=== PATIENT | female | born 1960 | race Caucasian/White ===

== ENCOUNTER 2018-06-15 06:33 | Day surgery (SDC) | payer OTHER ==
[~2018-06-15] VITALS: Ht 167.6 cm; Wt 138.7 kg
[~2018-06-15 06:33] MED LIST: ALBU3IS INH; ALBU90OI INH; ALBU90OI6 INH; ALBUIS INH; AZIT250 PO; AZIT500 PO; Anusol-HC 2.5%30 GM PR; CHOL10002 PO; CIPDEXSU BOTHEARS; CLARITIN10 MG PO; CLIN300 PO; CODEINE-GUAIFE120 ML PO; CODGUAEL PO; CRUTCH2 USE; CYCL10 PO; Ciprodex Otic7.5 ML LEFTEAR; Coumadin7.5 MG PO; DELTASONE20 MG PO; DILT120 PO; DOCU100 PO; DULERA 200 MCG/13 GM INH; ERGO50000 PO; FLUSAL1005 IH; FLUSAL5005 INH; FLUT1DIS8 INH; FOLGARD TABLET1 EACH; HYDACE10B PO; HYDR-86 PO; LAVAP17G PO; MONT10T PO; OXYACE5T PO; OXYACE7.5T PO; PANT40 PO; PRED10 PO; PRED20 PO; Prednisone50 MG PO; TIOT18 IH; TIOT18 INH; Ultram50 MG PO; VALSARTAN-HCTZ1 EAC2 PO; Ventolin Soln3 ML INH; Ventolin5 MG/1 ML INH; WARF5 PO; WOMEN'S DAILY1 EAC1 PO
[2018-06-15] MEDS ORDERED: ALBU90OI INH (07:10)
[2018-06-15] MEDS ORDERED: BUDE6HFA INH (07:12)
[2018-06-15] MEDS ORDERED: Apple Cider Vi500 MG PO (07:12)
== END 2018-06-15 17:30 | disposition home or self-care (01) ==
LOC: ORSCSDS 06:33
PROVIDERS: Otolaryngology
PROC: 0NR607Z Replacement of Left Temporal Bone with Autologous Tissue Substitute, Open Approach (ICD-10-PCS; principal; 2018-06-15 07:30)
DX: H71.02 Cholesteatoma of attic, left ear (principal); I10 Essential (primary) hypertension; J44.9 Chronic obstructive pulmonary disease, unspecified; E66.01 Morbid (severe) obesity due to excess calories; Z68.42 Body mass index [BMI] 45.0-49.9, adult
CPT/HCPCS: 88304; J0171; J0330; J1100; J2250; J2405; J3010

== ENCOUNTER → 2018-09-07 | Outpatient (CLI) | payer OTHER ==
[~2018-09-07] MED LIST changes: +Apple Cider Vi500 MG PO; +BUDE6HFA INH
== END | disposition home or self-care (01) ==
LOC: PLD 07:38 → LAB SHORT 07:38
DX: N95.0 Postmenopausal bleeding (principal)
CPT/HCPCS: 88305

== ENCOUNTER → 2018-11-11 | Outpatient (CLI) | payer OTHER | LOC: LAB EV 14:26 → LAB SHORT 14:26 | DX: J45.909 Unspecified asthma, uncomplicated (principal) | CPT/HCPCS: 87081 ==

== ENCOUNTER 2019-06-21 06:09 | Day surgery (SDC) | payer OTHER ==
[~2019-06-21] VITALS: Ht 165.1 cm; Wt 138.4 kg
[~2019-06-21 06:09] MED LIST changes: +ALDACTONE25 MG PO; +DULO30 PO; +METO25ER PO; +WARF7.5 PO
--- NOTE | 2019-06-21 07:21 | NUR ---
06/21/19 0721 Alida Gómez IV ATTEMPT LEFT HAND THEN ANOTHER ATTEMPT IN RIGHT AC. VEIN WAS ACCESSED BOTH TIMES BUT WOULD NOT THREAD CATHETER IN COMPLETELY AND WHEN IS TRIED TO FLOAT THE CATHETER IN THE VEIN INFILTRATED
--- NOTE | 2019-06-21 08:38 | NUR ---
06/21/19 0838 Clarisa Peterson PATIENT POSITION VERIFIED BY DOCTORS IN ROOM.
--- NOTE | 2019-06-21 11:48 | NUR ---
06/21/19 1148 Pauly Villagomez PT C/O BURNING, ITCHING AND PAIN TO LEFT EYE. DR. CRAIG AND DR. GILES NOTIFIED. ERYTHROMYCIN OPTHALMIC OINTMENT ORDERED. DR. GILES REQUESTED THAT DR. BYRNE SEE THE PT PRIOR TO DISCHARGE. ERYTHROMYCIN OINTMENT APPLIED TO LEFT EYE. DR. BYRNE TO SEE PT. RECOMMENDING ERYTHROMYCIN OINTMENT WHICH SHOULD HELP OVER THE NEXT DAY. PT SENT HOME WITH ERYTHROMYCIN OINTMENT AND DR. BYNRE'S OFFICE NUMBER IN THE EVENT THAT THE IRRITATION DOES NOT GET BETTER.
== END 2019-06-21 12:29 | disposition home or self-care (01) ==
LOC: ORSCSDS 06:09
PROVIDERS: Otolaryngology
PROC: 09W Ear, Nose, Sinus, Revision (ICD-10-PCS; principal; 2019-06-21 07:30)
DX: H71.02 Cholesteatoma of attic, left ear (principal); J44.9 Chronic obstructive pulmonary disease, unspecified; J45.909 Unspecified asthma, uncomplicated; I10 Essential (primary) hypertension; I48.91 Unspecified atrial fibrillation; Z79.01 Long term (current) use of anticoagulants; Z79.899 Other long term (current) drug therapy; Z87.891 Personal history of nicotine dependence
CPT/HCPCS: J0171; J1100; J2250; J2405; J2704; J3010; J7120

== ENCOUNTER 2020-08-26 17:38 | Observation (INO) | payer OTHER ==
[~2020-08-26] VITALS: Ht 167.6 cm; Wt 139.8 kg
[~2020-08-26 17:38] MED LIST changes: -ALDACTONE25 MG PO; -BUDE6HFA INH; -DULO30 PO; -METO25ER PO
[2020-08-26 18:17] LABS: BASOPHILS PERCENT AUTO 1 % (0-2); EOSINOPHILS ABSOLUTE AUTO 1.96 K/mm3 (0.00-0.68); EOSINOPHILS PERCENT AUTO 16 % (0-6); Hematocrit 46.3 % (33.0-51.0); Hemoglobin 14.8 g/dL (11.5-16.0); IMMATURE GRAN ABSOLUTE AUTO 0.05 K/mm3 (0.00-0.10); IMMATURE GRAN PERCENT AUTO 0 % (0-1); LYMPHOCYTES ABSOLUTE AUTO 4.37 K/mm3 (0.84-5.20); LYMPHOCYTES PERCENT AUTO 35 % (21-46); MONOCYTES ABSOLUTE AUTO 0.76 K/mm3 (0.16-1.47); MONOCYTES PERCENT AUTO 6 % (4-13); Mean Corpuscular HGB 26.3 pg (26.0-34.0); Mean Corpuscular Volume 82 fL (80-100); Mean Platelet Volume 9.8 fL (9.1-12.4); NEUTROPHILS ABSOLUTE AUTO 5.44 K/mm3 (1.96-9.15); NEUTROPHILS PERCENT AUTO 43 % (41-73); Platelet Count 388 K/mm3 (150-400); RDW Coefficient Variation 14.6 % (11.7-14.2); RDW Standard Deviation 44.3 fL (35.1-46.3); Red Blood Cell Count 5.62 M/mm3 (3.80-5.20); White Blood Cell Count 12.68 K/mm3 (4.00-11.30)
[2020-08-26 18:24] LABS: Bicarbonate Venous 24.1 mmol/L (24.0-30.0); PCO2 Venous 51.7 mmHg (38-42); PO2 Venous 39.2 mmHg (38-42); pH Blood Venous 7.33 (7.34-7.37)
[2020-08-26 18:25] LABS: Base Excess Venous 1.6 mmol/L
[2020-08-26 18:50] LABS: Troponin I <0.015 ng/mL (0.000-0.040)
[2020-08-26 18:58] LABS: Alanine Aminotransfer (ALT/SGP 27 U/L (12-78); Albumin, Blood 3.6 g/dL (3.4-5.0); Albumin/Globulin Ratio 0.9 (0.8-1.8); Alk Phos 142 U/L (50-136); Anion Gap 5 mmol/L (6-16); Aspartate Aminotrans (AST/SGOT 16 U/L (12-37); Bilirubin, Total 0.4 mg/dL (0.1-1.0); Blood Urea Nitrogen 15 mg/dL (8-24); Bun/Creatinine Ratio 16.4 (12.0-20.0); CO2, Blood 26 mmol/L (21-32); Calcium, Blood 9.4 mg/dL (8.5-10.1); Chloride, Blood 107 mmol/L (98-108); Creatinine, Blood 0.92 mg/dL (0.40-1.00); Glomerular Filtration Rate >60 (60-); Glucose, Blood 117 mg/dL (70-99); Potassium, Blood 4.1 mmol/L (3.5-5.5); Sodium, Blood 138 mmol/L (136-145); Total Protein, Blood 7.6 g/dL (6.4-8.2)
[2020-08-26] MEDS ORDERED: ALBU90OI INH (21:36)
[2020-08-26] MEDS ORDERED: METO25ER PO (21:37)
[2020-08-26] MEDS ORDERED: SYMBICORT 160-4.6 GM INH (21:37)
[2020-08-26] MEDS ORDERED: DULO30 PO (21:37)
[2020-08-26] MEDS ORDERED: ALDACTONE25 MG PO (21:38)
[2020-08-26] MEDS ORDERED: OMEP20ER PO (21:38)
[2020-08-26] MEDS ORDERED: MONT10T PO (21:38)
[2020-08-26] MEDS ORDERED: XARELTO20 MG PO (21:39)
[2020-08-26] MEDS ORDERED: ROSU10TA PO (21:39)
[2020-08-26] MEDS ORDERED: TIOT18 INH (21:40)
--- NOTE | 2020-08-27 00:22 | NUR ---
PATIENT WAS ADMITTED TO FLOOR FOR COPD EXACERBATION. ARRIVED VIA GURNEY TRANSFERRED TO BED INDEPENDENTLY. AOX3, VERY TALKATIVE. LUNG SOUNDS ARE VERY TIGHT, DIMINISHED WITH SOME EXPIRTORY WHEEZES. COUGH IS NON-PRODUCTIVE. SHE GOES INTO COUGHING SPASMS AT TIMES. HAS ABDOMINAL WALL PAIN DUE TO COUGHING ALONG WITH UPPER BACK PAIN. ON RA SATS IN THE 90'S. TELE ON. DENIES ANY OTHER PROBLEMS. WILL CONTINUE TO MONITOR. CALL LIGHT IS IN REACH.
[2020-08-27 02:53] LABS: Anion Gap 9 mmol/L (6-16); Blood Urea Nitrogen 14 mg/dL (8-24); Bun/Creatinine Ratio 19.9 (12.0-20.0); CO2, Blood 23 mmol/L (21-32); Calcium, Blood 9.7 mg/dL (8.5-10.1); Chloride, Blood 107 mmol/L (98-108); Glomerular Filtration Rate >60 (60-); Glucose, Blood 162 mg/dL (70-99); Potassium, Blood 4.1 mmol/L (3.5-5.5); Sodium, Blood 139 mmol/L (136-145)
[2020-08-27 03:43] LABS: BASOPHILS ABSOLUTE AUTO 0.04 K/mm3 (0.00-0.23); BASOPHILS PERCENT AUTO 0 % (0-2); EOSINOPHILS ABSOLUTE AUTO 0.01 K/mm3 (0.00-0.68); EOSINOPHILS PERCENT AUTO 0 % (0-6); Hematocrit 43.5 % (33.0-51.0); Hemoglobin 14.3 g/dL (11.5-16.0); IMMATURE GRAN ABSOLUTE AUTO 0.16 K/mm3 (0.00-0.10); IMMATURE GRAN PERCENT AUTO 1 % (0-1); LYMPHOCYTES ABSOLUTE AUTO 0.92 K/mm3 (0.84-5.20); LYMPHOCYTES PERCENT AUTO 8 % (21-46); MONOCYTES ABSOLUTE AUTO 0.07 K/mm3 (0.16-1.47); MONOCYTES PERCENT AUTO 1 % (4-13); Mean Corpuscular HGB 26.4 pg (26.0-34.0); Mean Corpuscular HGB Conc 32.9 g/dL (31.5-36.5); Mean Corpuscular Volume 80 fL (80-100); NEUTROPHILS ABSOLUTE AUTO 10.69 K/mm3 (1.96-9.15); NEUTROPHILS PERCENT AUTO 90 % (41-73); Platelet Count 370 K/mm3 (150-400); RDW Coefficient Variation 14.6 % (11.7-14.2); RDW Standard Deviation 42.5 fL (35.1-46.3); Red Blood Cell Count 5.41 M/mm3 (3.80-5.20); White Blood Cell Count 11.89 K/mm3 (4.00-11.30)
--- NOTE | 2020-08-27 04:59 | NUR ---
SHIFT SUMMARY: ADMIT TONIGHT AROUND 2300 FOR COPD EXACERBATION. AOX4, INDEPENDENT IN THE ROOM. HAS HAD INCREASED IN SOB OVER THE LAST MONTH, FAILED HOME ANTIBOTICS AND STERIOD USE. LUNG SOUNDS EXPIRTORY WHEEZES, TIGHT, DIMINISHED BUT GOOD AIR EXCHANGE AND PURFUSION EVIDENCE BY SATS >95%. SOB WITH TALKING AT TIMES, BUT DOES GET VERY DYSPENIC WITH EXERTION. COUGH IS PRODUCTIVE WITH BROWN SPUTUM. BREATHING TX Q4 HRS, VBG CO2 51.7 ON ADMIT. HYPERTENSIVE IN THE 160'S. PAIN IN UPPER BACK AND UPPER ABDOMIN FROM HACKING SPASMATIC COUGH. AFEBRILE, ON RA. GAVE COUGH SUPPRESANT X1. PLAN: RT TREATMENT OF NEBULIZER AND INHALERS, POSSIBLE STERIODS. CALL LIGHT IS IN REACH.
--- NOTE | 2020-08-27 17:08 | NUR ---
PT IS A/OX3, PLEASANT AND COOPERATIVE, THE PT IS UP WITH MINIMAL ASSIST TO THE BATHROOM, THE PT DENIES ANY PAIN AT THIS TIME, THE PT IS SOB WITH ANY ACTIVITY, TODAY THE PATIENT WAS OUT WALKING IN THE [place] WITH THE RESPIRATORY THERAPIST FOR A HOME O2 EVAL, THE PT MAINTAINED HER O2 SAT'S, HOWVER, BECAME VERY WHEEZY, PURPLE IN COLOR, AND TACHYCARDIAC HR IN THE HIGH 120'S, DR. PENNINGTON WAS CALLED AND THE PTS DC WAS HELD UNTIL POSSIBLY TOMMOROW, THE PT BP WAS ELEVATED AND RESP WERE IN THE 30'S, ATIVAN 1 MG WAS GIVEN AND THE PT WAS ABLE TO CALM, THE PT WAS GIVEN ROBITUSSIN FOR HARSH COUGH, COUGH HAS IMPROVED, CALL LIGHT IN REACH WILL CONTINUE TO MONITOR AND ASSESS FOR CHANGES
[2020-08-27] MEDS ORDERED: ACET325 PO (17:50)
[2020-08-27] MEDS ORDERED: AZIT250 PO (17:51)
[2020-08-27] MEDS ORDERED: BISA10S PR (17:52)
[2020-08-27] MEDS ORDERED: Q-Tussin100 MG/5 M PO (17:56)
[2020-08-27] MEDS ORDERED: Flonase 0.05% N16 GM (17:57)
[2020-08-27] MEDS ORDERED: IPRAT-ALBUT 0.5-3 ML INH (17:59)
[2020-08-27] MEDS ORDERED: PRED20 PO (18:00)
[2020-08-27] MEDS ORDERED: VISBIOME 112.51 EACH PO (18:00)
[2020-08-27] MEDS ORDERED: LORA10ER PO (18:02)
[2020-08-27 19:27] LABS: Adenovirus Not Detected (NOT DETECT)
[2020-08-27 19:28] LABS: Bordetella pertussis Not Detected (NOT DETECT); Chlamydophila pneumoniae Not Detected (NOT DETECT); Coronavirus 229E Not Detected (NOT DETECT); Coronavirus HKU1 Not Detected (NOT DETECT); Coronavirus NL63 Detected (NOT DETECT); Coronavirus OC43 Not Detected (NOT DETECT); Human Metapneumovirus Not Detected (NOT DETECT); Human Rhinovirus/Enterovirus Not Detected (NOT DETECT); Influenza A/2009-H1 Not Detected (NOT DETECT); Influenza A/H1 Not Detected (NOT DETECT); Influenza A/H3 Not Detected (NOT DETECT); Influenza B Not Detected (NOT DETECT); Mycoplasma pneumoniae Not Detected (NOT DETECT); Parainfluenza Virus 1 Not Detected (NOT DETECT); Parainfluenza Virus 2 Not Detected (NOT DETECT); Parainfluenza Virus 3 Not Detected (NOT DETECT); Parainfluenza Virus 4 Not Detected (NOT DETECT); Respiratory Syncytial Virus Not Detected (NOT DETECT); SARS-Cov-2 (COVID-19), BioFire Not Detected (NOT DETECT)
--- NOTE | 2020-08-27 20:40 | NUR ---
ASSUMPTION OF CARE. AOX3, INDEPENDENT. BREATHING HAS IMPROVED, SHE IS NOT TACHYPNEA ALL THE TIME. LUNG SOUNDS ARE EXPIRTORY WHEEZES, ALREADY HAD A BREATHING TREATMENT FROM RT AND INHALERS. STILL GETS VERY WINDED WITH EXERTION. DISCUSSED BREATHING EXERCISES TO HELP IMPROVE MOBILITY. DENIES ANY OTHER ISSUSES. NIGHT MEDS ADMINISTERED. CURRENTLY READING HER TABLET. CALL LIGHT IS IN REACH.
[2020-08-28 05:06] LABS: BASOPHILS ABSOLUTE AUTO 0.03 K/mm3 (0.00-0.23); BASOPHILS PERCENT AUTO 0 % (0-2); EOSINOPHILS PERCENT AUTO 0 % (0-6); Hematocrit 41.5 % (33.0-51.0); Hemoglobin 13.5 g/dL (11.5-16.0); IMMATURE GRAN ABSOLUTE AUTO 0.26 K/mm3 (0.00-0.10); IMMATURE GRAN PERCENT AUTO 1 % (0-1); LYMPHOCYTES ABSOLUTE AUTO 1.42 K/mm3 (0.84-5.20); LYMPHOCYTES PERCENT AUTO 6 % (21-46); MONOCYTES ABSOLUTE AUTO 0.58 K/mm3 (0.16-1.47); MONOCYTES PERCENT AUTO 3 % (4-13); Mean Corpuscular HGB 26.1 pg (26.0-34.0); Mean Corpuscular HGB Conc 32.5 g/dL (31.5-36.5); Mean Corpuscular Volume 80 fL (80-100); Mean Platelet Volume 9.8 fL (9.1-12.4); NEUTROPHILS ABSOLUTE AUTO 21.08 K/mm3 (1.96-9.15); NEUTROPHILS PERCENT AUTO 90 % (41-73); Platelet Count 346 K/mm3 (150-400); RDW Coefficient Variation 14.8 % (11.7-14.2); RDW Standard Deviation 43.1 fL (35.1-46.3); Red Blood Cell Count 5.17 M/mm3 (3.80-5.20); White Blood Cell Count 23.37 K/mm3 (4.00-11.30)
[2020-08-28 05:20] LABS: Anion Gap 6 mmol/L (6-16); Blood Urea Nitrogen 19 mg/dL (8-24); Bun/Creatinine Ratio 21.6 (12.0-20.0); CO2, Blood 24 mmol/L (21-32); Calcium, Blood 9.4 mg/dL (8.5-10.1); Chloride, Blood 109 mmol/L (98-108); Creatinine, Blood 0.88 mg/dL (0.40-1.00); Glomerular Filtration Rate >60 (60-); Glucose, Blood 143 mg/dL (70-99); Magnesium, Blood 2.4 mg/dL (1.6-2.4); Potassium, Blood 4.5 mmol/L (3.5-5.5); Sodium, Blood 139 mmol/L (136-145)
--- NOTE | 2020-08-28 06:21 | NUR ---
SHIFT SUMMARY: AOX3, INDEPENDENT. RESPIRTORY STATUS HAS IMPROVED. SHE HAD BETTER AIR MOVEMENT IN THE LUNGS BUT STILL VERY SOB WITH EXERTION. LS EXPIRTORY WHEEZES. BREATHING TX Q4, SOLUMEDROL Q6 60MG. COUGH HAS IMPROVED NOT SO MUCH HACKING. WBC INCREASED TODAY TO 23.37. BP HAS BEEN AVERAGING IN THE 160'S. HR PER TELE AVERAGE I THE 70'S. NO EDEMA. HOPES TO GO HOME TODAY. CALL LIGHT IS IN REACH.
--- NOTE | 2020-08-28 07:36 | NUR ---
ASSUMED CARE OF PT- BEDSIDE REPORT COMPLETED WITH NIGHT RN GENE. PT ALERT ORIENTED AND INDEPENDENT IN THE ROOM. HERE FOR A COPD EXACERBATION. PT VERY TALKATIVE DESPITE A HACKING COUGH AND SOB RESULTING FROM IT. PER REPORT PT HAD A HOME O2 EVAL YESTERDAY, PLAN FOR DISCHARGE TODAY. ALSO PER REPORT PT IS RECIEVEING Q6 HOUR IV SOLUMEDROL, WBC COUNT ELEVATED ON MORNING LABS MAY BE RELATED TO STEROIDS. WILL SPEAK TO DR ON MORNING ROUNDS. PT IN BED CALL LIGHT IN REACH, NO S&S OF DISTRESS, HACKING COUGH NOTED. RT IN THE ROOM AT THE TIME OF REPORT.
--- NOTE | 2020-08-28 10:00 | NUR ---
SPOKE TO DR PENNINGTON ABOUT THE PT DOSE OF SOLUMEDROL HE IS AWARE. PT TO GO HOME ON PO PREDNISONE STARTING TOMORROW. PT SEEMS TO HAVE SOME ACTIVITY INTOLLERANCE AND HAS CONVEYED TO STAFF SHE DOES NOT FEEL READY TO GO HOME JUST YET. DR PONCE. [facility] ORDERED TO CONFIRM PT MEDICAL STABILITY, ALL OTHER FINDINGS ARE WNL. ELEVATED WBC COUNT, DR PONCE (LIKELY RELATED TO IV STEROID USE). IF [facility]G HAS NO CRITICAL VALUES THE PT WILL BE DISCHARGING HOME. SPOKE TO PHYSICAL THERAPY, PER PHYSICAL THERAPIST PT IS AT HER BASELINE FOR HER ACTIVITY AND DOSE NOT QUALIFY FOR SNF. PT ALERT AND ORIENTED 1P ASSIST IN THE ROOM FOR SAFETY.
--- NOTE | 2020-08-28 13:30 | NUR ---
CALLED DR PENNINGTON- NO CRITICAL VALUES ON ABG RESULTS. PT OK TO DISCHARGE HOME. OK TO GIVE 1200 DOSE OF SOLUMEDROL IV PRIOR TO DISCHARGE.
[2020-08-28 13:34] LABS: PCO2 Arterial 34.7 mmHg (35-45); PO2 Arterial 72.9 mmHg (80-100); pH Blood Arterial 7.46 (7.35-7.45)
--- NOTE | 2020-08-28 15:30 | NUR ---
SPOKE TO EVAPORATIVE COOLER INSTALLER PT NEEDS A FWW AT HOME AND DISCHARGE IS EMINENT. [facility] TO DELIVER PRIOR TO PT DISCHARGE.
--- NOTE | 2020-08-28 16:03 | NUR ---
DISCHARGE NOTE- PT WALKER HAS BEEN DELIVERED. PT WAS GIVEN VERBAL AND WRITTEN DISCHRGE INSTRUCTIONS AND ACKNOWLEDGED UNDERSTANDING OF THEM. MEDS FAXED TO PT PHARMACY, FOLLOW UP APPOINTMENTS SCHEDULED, PT AWARE. ORTHODONTIST VICE PRESIDENT COMPLETED DISCHARGE. PT IV AND TELE DC'D PRIOR TO DISCHARGE, PT TO BE ESCORTED OUT VIA WC BY STAFF, FAMILY JUST ARRIVED TO PICK HER UP. PT VERY CONVERSATIONAL, LONG SCENTENCES AND STORIES FREQUENTLY.
== END 2020-08-28 16:15 | disposition home health service (06) ==
LOC: ER 17:38 → MEDS 17:39 → ENPENDDIS 08-27 14:25 → MEDS 08-28 16:15
PROVIDERS: Family Medicine; Nurse Practitioner Acute Care; Physician Assistant; ADMIT Internal Medicine
DX: J44.9 Chronic obstructive pulmonary disease, unspecified (principal); J45.901 Unspecified asthma with (acute) exacerbation; J96.20 Acute and chronic respiratory failure, unspecified whether with hypoxia or hypercapnia; I48.20 Chronic atrial fibrillation, unspecified; R07.89 Other chest pain; I10 Essential (primary) hypertension; E66.01 Morbid (severe) obesity due to excess calories; Z20.822 Contact with and (suspected) exposure to COVID-19; Z29.9 Encounter for prophylactic measures, unspecified; Z87.891 Personal history of nicotine dependence; Z88.0 Allergy status to penicillin; Z88.1 Allergy status to other antibiotic agents; Z88.2 Allergy status to sulfonamides
CPT/HCPCS: 0202U; 36415; 36600; 71045; 80048; 80053; 82803; 83735; 83880; 84145; 84484; 85025; 85379; 93005; 93010; 94640; 94644; 94645; 94660; 94664; 94667; 94668; 94760; 94762; 96365; 96366; 96375; 96376; 97116; 97162; 97530; 98960; 99285-25; A9270; G0378; J2060; J2930; J3475

== ENCOUNTER 2020-09-11 17:15 | Inpatient (IN) | payer OTHER ==
[~2020-09-11] VITALS: Ht 157.5 cm; Wt 143.7 kg
[~2020-09-11 17:15] MED LIST changes: +ACET325 PO; +ALDACTONE25 MG PO; +BISA10S PR; +DULO30 PO; +Flonase 0.05% N16 GM; +IPRAT-ALBUT 0.5-3 ML INH; +LORA10ER PO; +METO25ER PO; +OMEP20ER PO; +Q-Tussin100 MG/5 M PO; +ROSU10TA PO; +SYMBICORT 160-4.6 GM INH; +VISBIOME 112.51 EACH PO; +XARELTO20 MG PO
[2020-09-11] MEDS ORDERED: TIOT18 (17:51)
[2020-09-11] MEDS ORDERED: XARELTO20 MG PO (17:51)
[2020-09-11 17:53] LABS: BASOPHILS ABSOLUTE AUTO 0.07 K/mm3 (0.00-0.23); BASOPHILS PERCENT AUTO 1 % (0-2); EOSINOPHILS ABSOLUTE AUTO 0.56 K/mm3 (0.00-0.68); EOSINOPHILS PERCENT AUTO 5 % (0-6); Hematocrit 44.4 % (33.0-51.0); IMMATURE GRAN ABSOLUTE AUTO 0.07 K/mm3 (0.00-0.10); IMMATURE GRAN PERCENT AUTO 1 % (0-1); LYMPHOCYTES ABSOLUTE AUTO 2.18 K/mm3 (0.84-5.20); LYMPHOCYTES PERCENT AUTO 18 % (21-46); MONOCYTES ABSOLUTE AUTO 0.79 K/mm3 (0.16-1.47); MONOCYTES PERCENT AUTO 6 % (4-13); Mean Corpuscular HGB 26.1 pg (26.0-34.0); Mean Corpuscular HGB Conc 31.5 g/dL (31.5-36.5); Mean Corpuscular Volume 83 fL (80-100); Mean Platelet Volume 9.7 fL (9.1-12.4); NEUTROPHILS ABSOLUTE AUTO 8.75 K/mm3 (1.96-9.15); NEUTROPHILS PERCENT AUTO 70 % (41-73); Platelet Count 334 K/mm3 (150-400); RDW Coefficient Variation 15.8 % (11.7-14.2); RDW Standard Deviation 46.9 fL (35.1-46.3); Red Blood Cell Count 5.36 M/mm3 (3.80-5.20); White Blood Cell Count 12.42 K/mm3 (4.00-11.30)
[2020-09-11 18:05] LABS: Alanine Aminotransfer (ALT/SGP 82 U/L (12-78); Albumin, Blood 3.7 g/dL (3.4-5.0); Albumin/Globulin Ratio 0.9 (0.8-1.8); Alk Phos 142 U/L (50-136); Anion Gap 5 mmol/L (6-16); Aspartate Aminotrans (AST/SGOT 48 U/L (12-37); Bilirubin, Total 0.6 mg/dL (0.1-1.0); Blood Urea Nitrogen 7 mg/dL (8-24); CO2, Blood 24 mmol/L (21-32); Calcium, Blood 9.5 mg/dL (8.5-10.1); Chloride, Blood 110 mmol/L (98-108); Creatinine, Blood 0.78 mg/dL (0.40-1.00); Globulin, Blood 4.1 g/dL (2.2-4.0); Glomerular Filtration Rate >60 (60-); Glucose, Blood 117 mg/dL (70-99); Potassium, Blood 4.2 mmol/L (3.5-5.5); Sodium, Blood 139 mmol/L (136-145); Total Protein, Blood 7.8 g/dL (6.4-8.2); Troponin I <0.015 ng/mL (0.000-0.040)
[2020-09-11 18:51] LABS: PCO2 Arterial 38.9 mmHg (35-45); PO2 Arterial 120 mmHg (80-100); pH Blood Arterial 7.38 (7.35-7.45)
[2020-09-11] MEDS ORDERED: DAILY-VITE1 EAC1 PO (19:41)
[2020-09-12 04:35] LABS: BASOPHILS ABSOLUTE AUTO 0.01 K/mm3 (0.00-0.23); BASOPHILS PERCENT AUTO 0 % (0-2); EOSINOPHILS PERCENT AUTO 0 % (0-6); Hematocrit 38.6 % (33.0-51.0); Hemoglobin 12.4 g/dL (11.5-16.0); IMMATURE GRAN ABSOLUTE AUTO 0.07 K/mm3 (0.00-0.10); IMMATURE GRAN PERCENT AUTO 1 % (0-1); LYMPHOCYTES ABSOLUTE AUTO 0.76 K/mm3 (0.84-5.20); LYMPHOCYTES PERCENT AUTO 8 % (21-46); MONOCYTES ABSOLUTE AUTO 0.08 K/mm3 (0.16-1.47); MONOCYTES PERCENT AUTO 1 % (4-13); Mean Corpuscular HGB 26.3 pg (26.0-34.0); Mean Corpuscular HGB Conc 32.1 g/dL (31.5-36.5); Mean Corpuscular Volume 82 fL (80-100); Mean Platelet Volume 9.8 fL (9.1-12.4); NEUTROPHILS ABSOLUTE AUTO 8.08 K/mm3 (1.96-9.15); NEUTROPHILS PERCENT AUTO 90 % (41-73); Platelet Count 311 K/mm3 (150-400); RDW Coefficient Variation 15.7 % (11.7-14.2); RDW Standard Deviation 46.5 fL (35.1-46.3); Red Blood Cell Count 4.71 M/mm3 (3.80-5.20)
[2020-09-12 04:56] LABS: Alanine Aminotransfer (ALT/SGP 68 U/L (12-78); Albumin, Blood 3.1 g/dL (3.4-5.0); Albumin/Globulin Ratio 0.8 (0.8-1.8); Alk Phos 126 U/L (50-136); Anion Gap 7 mmol/L (6-16); Aspartate Aminotrans (AST/SGOT 29 U/L (12-37); Bilirubin, Total 0.5 mg/dL (0.1-1.0); Blood Urea Nitrogen 8 mg/dL (8-24); Bun/Creatinine Ratio 11.9 (12.0-20.0); CO2, Blood 23 mmol/L (21-32); Calcium, Blood 9.4 mg/dL (8.5-10.1); Chloride, Blood 110 mmol/L (98-108); Creatinine, Blood 0.67 mg/dL (0.40-1.00); Globulin, Blood 3.7 g/dL (2.2-4.0); Glomerular Filtration Rate >60 (60-); Glucose, Blood 169 mg/dL (70-99); Potassium, Blood 4.3 mmol/L (3.5-5.5); Sodium, Blood 140 mmol/L (136-145); Total Protein, Blood 6.8 g/dL (6.4-8.2)
--- NOTE | 2020-09-12 12:10 | NUR ---
PHYSICIAN UPDATED PHYSICIAN UPDATED OF PT'S CURRENT HYPERTENSIVE STATE. PHYSICIAN TO PUT IN ORDERS.
--- NOTE | 2020-09-12 18:37 | NUR ---
SHIFT SUMMARY PT ALERT AND ORIENTED X 4. HR STABLE. BP HYPERTENSIVE AT TIMES. PHYSICIAN NOTIFIED. MEDICATION PROVIDED PER EMAR AND PHYSICIAN ORDERS. NO CP OR PRESSURE REPORTED. OXYGEN SATURATION MAINTAINED ABOVE 92% ON RA. PT SBA TO COMMODE NEEDED. WILL CONTINUE TO MONITOR UNTIL REPORT GIVEN TO NIGHTSHIFT RN.
--- NOTE | 2020-09-13 05:56 | NUR ---
SHIFT SUMMARY PT IS ALERT AND ORIENTED. PT HAS BEEN HYPERTENSIVE, SATS HAVE BEEN >92% ON ROOM AIR. USES CPAP DURING SLEEP. THERE HAVE BEEN NO ACUTE CHANGES. PT IS SBA TO THE BATHROOM WITH FWW AND TOLERATES WELL. BRUSING PRESENT IN RIGHT LEG DUE TO FALL. THERE IS BRUSING FROM PREVIOUS IV IN LEFT AC. WHEN ASSESSING PT STATED THAT HER CALF WAS VERY TENDER AT TOUCH WITH SOME WARMTH AND REDNESS.
--- NOTE | 2020-09-13 10:00 | NUR ---
pt laying in bed awake and eating breakfast, a/ox3, pleasant and cooperative with care, follows commands well, denies pain at this time, states she is feeling better, lungs are dim with occ wheeze in bases, resp even and unlabored, no cough noted, but she reports an occ prd cough, is on r/a at this time, hrr, 2+ edema noted to b/l le, ppp+1, cap refill <3sec, vs stable, afebrile, iv sites are clear and patent, btx4, abd flat soft nontender, voids without diff, skin has a large bruise to right knee, no open areas, maew, using a walker to ambulate to the bathroom, call light in reach. is medical status.
--- NOTE | 2020-09-13 10:04 | NUR ---
pt has a room on medical, will transfer her to medical via wheelchair, report given to Wilfrido SEGURA. pt left via wheelchair with engraver tire mold in attendence with all her belongings.
--- NOTE | 2020-09-14 05:27 | NUR ---
PT IS A/O, PLEASANT, WAS ANXIOUS AT BEGINING OF SHIFT, ATIVAN GIVEN FOR ANXIETY PER EMAR. PT HAS AUDIBLE WHEEZING AT ASSESSMENT, USES CPAP AT HS WHILE SLEEPING, CONTINUOUS BIOX ON.
[2020-09-14 05:33] LABS: BASOPHILS ABSOLUTE AUTO 0.02 K/mm3 (0.00-0.23); BASOPHILS PERCENT AUTO 0 % (0-2); EOSINOPHILS PERCENT AUTO 0 % (0-6); Hematocrit 39.7 % (33.0-51.0); Hemoglobin 12.7 g/dL (11.5-16.0); IMMATURE GRAN ABSOLUTE AUTO 0.14 K/mm3 (0.00-0.10); IMMATURE GRAN PERCENT AUTO 1 % (0-1); LYMPHOCYTES ABSOLUTE AUTO 0.87 K/mm3 (0.84-5.20); LYMPHOCYTES PERCENT AUTO 6 % (21-46); MONOCYTES PERCENT AUTO 3 % (4-13); Mean Corpuscular HGB 26.2 pg (26.0-34.0); Mean Corpuscular Volume 82 fL (80-100); NEUTROPHILS ABSOLUTE AUTO 13.54 K/mm3 (1.96-9.15); NEUTROPHILS PERCENT AUTO 91 % (41-73); Platelet Count 322 K/mm3 (150-400); RDW Coefficient Variation 15.9 % (11.7-14.2); RDW Standard Deviation 46.8 fL (35.1-46.3); Red Blood Cell Count 4.85 M/mm3 (3.80-5.20); White Blood Cell Count 14.97 K/mm3 (4.00-11.30)
[2020-09-14 05:59] LABS: Anion Gap 5 mmol/L (6-16); Blood Urea Nitrogen 24 mg/dL (8-24); Bun/Creatinine Ratio 28.1 (12.0-20.0); CO2, Blood 24 mmol/L (21-32); Calcium, Blood 8.8 mg/dL (8.5-10.1); Chloride, Blood 110 mmol/L (98-108); Creatinine, Blood 0.85 mg/dL (0.40-1.00); Glomerular Filtration Rate >60 (60-); Glucose, Blood 153 mg/dL (70-99); Phosphorus, Blood 3.5 mg/dL (2.5-4.9); Potassium, Blood 4.2 mmol/L (3.5-5.5); Sodium, Blood 139 mmol/L (136-145)
--- NOTE | 2020-09-14 16:33 | NUR ---
Shift Summary AOx4, pleasant/cooperative with care. Denies pain, nausea, vomiting, diarrhea. Up to shower with minimal assistance. Dyspnea with exertion, but patient reports doing better than previously. Continuous biox on, sats > 90%. Resting in bed comfortably, denies shortness of breath at rest. Occassional dry cough, on RA, wheezes to middle and lower lobes. No acute changes, WCTM.
--- NOTE | 2020-09-15 05:49 | NUR ---
PT IS A/O, PLEASANT, O2 SATS ARE IN UPPER 90'S BUT PT IS SOB WHEN AMBULATING TO RESTROOM WITH FWW. MEDICATED THIS SHIFT FOR ANXIETY, PT IS RECIEVING STEROIDS AND BREATHING TX'S. CPAP AT HS.
--- NOTE | 2020-09-15 12:45 | NUR ---
FLUTTER VALVE FLUTTER VALVE BROUGHT INTO ROOM. PATIENT VERBALIZES AND DEMONSTRATED UNDERSTANDING OF PURPOSE AND USE.
--- NOTE | 2020-09-15 16:38 | NUR ---
Shift Summary A/Ox4, up in room to bathroom independently with FWW. Calls for needs appropriately. Denies pain. Remains dysnpneic with exertion. Oximetry on. No acute changes, WCTM.
--- NOTE | 2020-09-16 05:10 | NUR ---
SUMMARY: PT A/OX4, INDEPENDENT, PLEASANT AND COOPERATIVE W/CARE AND CALLS APPROPRIATELY TO SPECIFY NEEDS. SHE ADMITS THAT BREATHING IS MUCH BETTER. SCHEDULED IV SOLUMEDROL AND BX TX'S BEING RECIEVED PER RT. PT TOLERATED CPAP AT HS W/CONT.BIOX. INTACT. SPO2 WNL AND RESPS E/U T/O NOCTE. MILD SOB OBSERVED W/EXERTION TO BATHROOM BUT PT RECOVERS QUICKLY. TESEKTAON ESTELLES RECIEVED FOR DRY COUGH AND ATIVAN IV PRN PROVIDED PER PT REQUEST FOR SLEEP. NO ACUTE CHANGES. SHE CONT'S INTERMITTENTLY HYPERTENSIVE W/SBP 170'S AT START OF SHIFT BUT IMPROVED TO 160'S AFTER SCHEDULED COZAAR WAS RECIEVED. VSS/AFEBRILE. WCTM AND REPORT TO DAY RN.
--- NOTE | 2020-09-16 18:44 | NUR ---
Shift Summary A/Ox4. Still short of breath with exertion. Independent to the bathroom w/FWW. Wheezing lung sounds throughout. Blood pressure has been elevated. PRN meds given. Otherwise, no acute changes.
--- NOTE | 2020-09-17 04:27 | NUR ---
SHIFT SUMMARY A/O, ABLE TO MAKE NEEDS KNOWN. COOPERATIVE WITH CARE. CALLS AND ANSWERS QUESTIONS APPROPRIATELY. NO C/O PAIN/DISCOMFORT. INDEPENDENT IN ROOM /c FWW; STATES WILL CALL IF FEELS DIZZY. STATES CAN FEEL BREATHING IS GETTING BETTER; ABLE TO YAWN. "I HAVENT BEEN ABLE TO YAWN IN SUCH A LONG TIME". REMAINS HYPERTENSIVE; HOWEVER APPEARS ON TREND WITH PREVIOUS PRESSURES. ALL OTHER VS WNL. CPAP @ HS WITH CONT. BIOX. IN PLACE. APPEARED TO REST OVERNIGHT. NO ACUTE CHANGES NOTED. BED REMAINS IN LOWEST POSITION. CALL LIGHT AND BELONGINGS WITHIN REACH. CONTINUE WITH CURRENT PLAN OF CARE. REPORT TO ONCOMING RN.
--- NOTE | 2020-09-17 16:04 | NUR ---
Requested by RN to meet pt today, to discuss anxiety. Pt appears anxious, and her face shakes when she breaths. attempts to tripod when she sits upright. Bilateral shoulders are extremly tight, likely related to struggle to breath. Pt reports she was asthmatic as a young child, and has lived with it all her life. She states she was them diagnosed with COPD some years ago, and has had exacerbations intermittently. She is currently diagnosed with pneumonia, and being treated with antibotx Requested Dr. Farooq order pulmonology consult, which she have on an outpatient basis. Plan to return to pt room today, offer teaching of breathing relaxation.
--- NOTE | 2020-09-17 17:48 | NUR ---
Met with pt again today, this time to practice breathing techniques such as diaphragmatic breathing and review pursed lip breathing, and pt reports she hasn't tried the diaphramatic breathing before, and find it does help to calm her. Pt likely d/c from hosptial tomorrow. Current code status is FULL and pt wishes to remain this way.
--- NOTE | 2020-09-18 06:00 | NUR ---
SHIFT SUMMARY: PATIENT IS A&OX4, LUNGS HAVE EXPIRATORY WHEEZES BILAT IN UPPER BASES. MAINTAINS SATS AT 96% ON RA. COMPLIANT WITH CPAP FOR SLEEP, VSS. INDEPENDANT TO THE BATHROOM. PATIENT REQUESTED ATIVAN FOR ANXIETY AND INSOMNIA, MED WAS GIVEN WITH GOOD EFFECT.
--- NOTE | 2020-09-18 09:00 | NUR ---
PT PLEASANT COOP A/O X3. TALKATIVE. DENIES PAIN. H/R REG, NO MURMER NOTED. NO TELE. LUNGS HAVE LIGHT EXP WHEEZES, LIGHTLY COARSE IN BASES. ON R/A. RESP EASY, UNLABORED. BT 4 LAST BM YEST. VOIDS INDEPENDANT TO BATHROOM. STATES SOME SOB WITH AMBULATION. BED IN LOW POSITION, CALL LITE IN REACH, CALLS APPROP
--- NOTE | 2020-09-18 11:06 | NUR ---
BP UP SOME THIS AM :154/98 P 61. RECHECK AFTER AM MEDS : 131/69 P 61
[2020-09-18] MEDS ORDERED: ACET325 PO (12:08)
[2020-09-18] MEDS ORDERED: Amlodipine Besyl5 MG PO (12:08)
[2020-09-18] MEDS ORDERED: BENZ100A PO (12:09)
[2020-09-18] MEDS ORDERED: FURO20 PO (12:10)
[2020-09-18] MEDS ORDERED: DOCU100 PO (12:10)
[2020-09-18] MEDS ORDERED: ROBITUSSIN PO (12:10)
[2020-09-18] MEDS ORDERED: LOSA50 PO (12:12)
[2020-09-18] MEDS ORDERED: IPRAT-ALBUT 0.5-3 ML INH (12:12)
[2020-09-18] MEDS ORDERED: ONDA4ODT PO (12:13)
[2020-09-18] MEDS ORDERED: PRED20 PO (12:15)
--- NOTE | 2020-09-18 15:14 | NUR ---
DISCHARGE. REVIEWED WITH PT AND GRANDSON. PT VERBALIZED UNDERSTANDING MEDS AND APPTS. IV PULLED INTACT. NO TELE. PT WHEELED TO DOOR BY AIDE AT 1514
== END 2020-09-18 15:10 | disposition home or self-care (01) | DRG 189 ==
LOC: ER 17:15 → PCU 21:11 → MEDS 21:11 → PCU 09-12 12:00 → MEDS 09-13 10:10
PROVIDERS: Emergency Medicine; Internal Medicine; ADMIT Internal Medicine
PROC: 5A09457 Assistance with Respiratory Ventilation, 24-96 Consecutive Hours, Continuous Positive Airway Pressure (ICD-10-PCS; principal; 2020-09-11)
DX: J96.01 Acute respiratory failure with hypoxia (principal); J45.901 Unspecified asthma with (acute) exacerbation; J44.1 Chronic obstructive pulmonary disease with (acute) exacerbation; Z68.45 Body mass index [BMI] 70 or greater, adult; I10 Essential (primary) hypertension; M79.7 Fibromyalgia; I48.0 Paroxysmal atrial fibrillation; E66.01 Morbid (severe) obesity due to excess calories; F40.240 Claustrophobia; F41.9 Anxiety disorder, unspecified; I25.10 Atherosclerotic heart disease of native coronary artery without angina pectoris; J40 Bronchitis, not specified as acute or chronic; G47.33 Obstructive sleep apnea (adult) (pediatric); M06.9 Rheumatoid arthritis, unspecified; Z88.1 Allergy status to other antibiotic agents; Z88.0 Allergy status to penicillin; Z88.2 Allergy status to sulfonamides; I25.2 Old myocardial infarction; Z79.01 Long term (current) use of anticoagulants; Z98.51 Tubal ligation status; Z98.890 Other specified postprocedural states; Z87.891 Personal history of nicotine dependence; Z79.899 Other long term (current) drug therapy; Z79.51 Long term (current) use of inhaled steroids
CPT/HCPCS: 36415; 36600; 71045; 80053; 80069; 82803; 84484; 85025; 93005; 93010; 94640; 94644; 94645; 94660; 94667; 94762; 99285-25; A9270; A9270-GY; J0360; J2060; J2930; J3475; J7512

== ENCOUNTER 2022-04-24 14:35 | Emergency (ER) | payer OTHER ==
[~2022-04-24] VITALS: Ht 167.6 cm; Wt 149.7 kg
[~2022-04-24 14:35] MED LIST changes: +Amlodipine Besyl5 MG PO; +BENZ100A PO; +DAILY-VITE1 EAC1 PO; +FURO20 PO; +LOSA50 PO; +ONDA4ODT PO; +ROBITUSSIN PO; +TIOT18
[2022-04-24 15:23] LABS: BASOPHILS ABSOLUTE AUTO 0.07 K/mm3 (0.00-0.23); BASOPHILS PERCENT AUTO 1 % (0-2); EOSINOPHILS ABSOLUTE AUTO 1.12 K/mm3 (0.00-0.68); EOSINOPHILS PERCENT AUTO 9 % (0-6); Hematocrit 40.2 % (33.0-51.0); IMMATURE GRAN ABSOLUTE AUTO 0.06 K/mm3 (0.00-0.10); IMMATURE GRAN PERCENT AUTO 1 % (0-1); LYMPHOCYTES ABSOLUTE AUTO 3.37 K/mm3 (0.84-5.20); LYMPHOCYTES PERCENT AUTO 27 % (21-46); MONOCYTES PERCENT AUTO 5 % (4-13); Mean Corpuscular HGB 25.9 pg (26.0-34.0); Mean Corpuscular HGB Conc 32.3 g/dL (31.5-36.5); Mean Corpuscular Volume 80 fL (80-100); NEUTROPHILS ABSOLUTE AUTO 7.47 K/mm3 (1.96-9.15); NEUTROPHILS PERCENT AUTO 59 % (41-73); Platelet Count 402 K/mm3 (150-400); RDW Coefficient Variation 15.9 % (11.7-14.2); RDW Standard Deviation 45.2 fL (35.1-46.3); Red Blood Cell Count 5.02 M/mm3 (3.80-5.20); White Blood Cell Count 12.69 K/mm3 (4.00-11.30)
[2022-04-24 15:52] LABS: Albumin/Globulin Ratio 0.8 (0.8-1.8); Bilirubin, Total 0.2 mg/dL (0.1-1.0); Bun/Creatinine Ratio 10.3 (12.0-20.0); Calcium, Blood 9.3 mg/dL (8.5-10.1); Creatinine, Blood 0.98 mg/dL (0.40-1.00); Potassium, Blood 4.3 mmol/L (3.5-5.5)
[2022-04-24] MEDS ORDERED: Prednisone50 MG PO (16:47)
== END 2022-04-24 17:22 | disposition home or self-care (01) ==
LOC: ER 14:35
PROVIDERS: Student in an Organized Health Care Education/Training Program
DX: J10.1 Influenza due to other identified influenza virus with other respiratory manifestations (principal); Z20.822 Contact with and (suspected) exposure to COVID-19
CPT/HCPCS: 71046; 80053; 83880; 84484; 85025; 93005; 93010; 94640; 94664; J2930

== ENCOUNTER 2023-06-10 12:25 | Emergency (ER) | payer OTHER ==
[~2023-06-10] VITALS: Ht 165.1 cm; Wt 136.1 kg
[2023-06-10 12:49] LABS: BASOPHILS ABSOLUTE AUTO 0.09 K/mm3 (0.00-0.23); BASOPHILS PERCENT AUTO 1 % (0-2); EOSINOPHILS ABSOLUTE AUTO 0.78 K/mm3 (0.00-0.68); EOSINOPHILS PERCENT AUTO 7 % (0-6); Hematocrit 35.2 % (33.0-51.0); Hemoglobin 11.5 g/dL (11.5-16.0); IMMATURE GRAN ABSOLUTE AUTO 0.06 K/mm3 (0.00-0.10); IMMATURE GRAN PERCENT AUTO 1 % (0-1); LYMPHOCYTES ABSOLUTE AUTO 3.24 K/mm3 (0.84-5.20); LYMPHOCYTES PERCENT AUTO 31 % (21-46); MONOCYTES PERCENT AUTO 7 % (4-13); Mean Corpuscular HGB 25.4 pg (26.0-34.0); Mean Corpuscular HGB Conc 32.7 g/dL (31.5-36.5); Mean Corpuscular Volume 78 fL (80-100); Mean Platelet Volume 10.6 fL (9.1-12.4); NEUTROPHILS ABSOLUTE AUTO 5.61 K/mm3 (1.96-9.15); NEUTROPHILS PERCENT AUTO 54 % (41-73); Platelet Count 458 K/mm3 (150-400); RDW Coefficient Variation 16.9 % (11.7-14.2); RDW Standard Deviation 47.9 fL (35.1-46.3); Red Blood Cell Count 4.52 M/mm3 (3.80-5.20); White Blood Cell Count 10.48 K/mm3 (4.00-11.30)
[2023-06-10 14:18] LABS: Influenza A, PCR NEGATIVE (NEGATIVE); Influenza B, PCR NEGATIVE (NEGATIVE); Resp Syncytial Virus, PCR NEGATIVE (NEGATIVE); SARS-Cov-2 (COVID-19) PCR, MMC NEGATIVE (NEGATIVE)
[2023-06-10] MEDS ORDERED: Prednisone20 MG PO (14:52)
[2023-06-10 15:29] LABS: Albumin, Blood 3.2 g/dL (3.4-5.0); Albumin/Globulin Ratio 0.7 (0.8-1.8); Bilirubin, Total 0.3 mg/dL (0.1-1.0); Bun/Creatinine Ratio 10.4 (12.0-20.0); Calcium, Blood 9.5 mg/dL (8.5-10.1); Creatinine, Blood 0.87 mg/dL (0.40-1.00); Globulin, Blood 4.6 g/dL (2.2-4.0); Potassium, Blood 3.9 mmol/L (3.5-5.5); Total Protein, Blood 7.8 g/dL (6.4-8.2)
[2023-06-10 17:00] VITALS: BP 148/67
== END 2023-06-10 17:25 | disposition home or self-care (01) ==
LOC: ER 12:25
PROVIDERS: Emergency Medicine
DX: J44.1 Chronic obstructive pulmonary disease with (acute) exacerbation (principal); Z20.822 Contact with and (suspected) exposure to COVID-19; I48.20 Chronic atrial fibrillation, unspecified; I10 Essential (primary) hypertension; I25.2 Old myocardial infarction; M06.9 Rheumatoid arthritis, unspecified; M79.7 Fibromyalgia; Z87.891 Personal history of nicotine dependence; Z79.52 Long term (current) use of systemic steroids; Z79.01 Long term (current) use of anticoagulants; Z79.899 Other long term (current) drug therapy; Z88.1 Allergy status to other antibiotic agents; Z88.0 Allergy status to penicillin; Z88.2 Allergy status to sulfonamides
CPT/HCPCS: 0241U; 71045; 80053; 83880; 84484; 85025; 93005; 93010; 94644; 94664; 96374; 96375; 99285-25; J1940; J2930

== ENCOUNTER 2023-11-19 09:55 | Day surgery (SDC) | payer OTHER ==
[~2023-11-19 09:55] MED LIST changes: +ALBU90OI NEB; +CALCIUM-VITAMIN D PO; +OLIVE; +Prednisone20 MG PO; -ROSU10TA PO; +ROSUVASTATIN CA10 MG PO; +TURMERIC; +XARELTO10 M1 PO; +[UNRECOGNIZED DRUG - OTHER]; +[UNRECOGNIZED DRUG - OTHER]
[2023-11-24] MEDS ORDERED: TURMERIC-GINGE1 EACH PO (12:24)
[2023-11-24] MEDS ORDERED: CALCIUM 1,0001 EAC1 PO (12:26)
[2023-11-24] MEDS ORDERED: WIXELA 500-501 EAC1 INH (12:31)
== END 2023-12-03 23:11 | disposition home or self-care (01) ==
LOC: MOI US 09:55
DX: C50.412 Malignant neoplasm of upper-outer quadrant of left female breast (principal); Z17.0 Estrogen receptor positive status [ER+]
CPT/HCPCS: 19285; 77065; A4648

== ENCOUNTER 2023-11-24 10:57 | Day surgery (SDC) | payer OTHER ==
[~2023-11-24] VITALS: Ht 165.1 cm; Wt 166.5 kg
[2023-11-24] VITALS (17 sets, daily range): BP systolic 116–146; BP diastolic 52–85
[2023-11-24] MEDS ORDERED: Lactated Ringer's 1,000 ML IV SCH (11:15)
[2023-11-24] MEDS ORDERED: CeFAZolin Sodium 3,000 MG in NS 100 ML IV SCH (11:20)
[2023-11-24] MEDS ORDERED: TURMERIC-GINGE1 EACH PO (12:24)
[2023-11-24] MEDS ORDERED: CALCIUM 1,0001 EAC1 PO (12:26)
[2023-11-24] MEDS ORDERED: WIXELA 500-501 EAC1 INH (12:31)
[2023-11-24] MEDS ORDERED: propofoL 20 ML IV ONE (12:35)
[2023-11-24] MEDS ORDERED: Methylene Blue 1% 100 MG/10 ML VIAL ONE (14:25)
[2023-11-24] MEDS ORDERED: Bupivacaine 0.5% HCl 5 MG/ML 30MLVIAL ONE (14:26)
[2023-11-24] MEDS ORDERED: FentaNYL Citrate 50 MCG/ML 2 ML Injection ONE ×3 (14:36→17:42)
--- NOTE | 2023-11-24 16:33 | NUR ---
11/24/23 1633 Florecita Holder CALL FROM RADIOLOGY AT 1633. SPECIMEN LOOKS GOOD PER DR. SOLIS
[2023-11-24] MEDS ORDERED: HYDROmorphone HCl/Pf 1MG SYR ONE (17:23)
[2023-11-24] MEDS ORDERED: OxyCODONE 5 mg/Acetamin 325 mg TABLET PO PRN (17:50)
--- NOTE | 2023-11-24 18:35 | NUR ---
Ambulatory in Day Surgery. POST OP TEACHING. EDUCATION UNDERSTOOD. BELONGINGS WITH PATIENT. TOLERATED FOOD AND FLUIDS WELL. Patient States Post-Procedure ride home has been arranged.
== END 2023-11-24 18:53 | disposition home or self-care (01) ==
LOC: NM 10:57 → ORSCMMR 10:57 → NM 12:00
PROVIDERS: Surgery
PROC: 07B60ZX Excision of Left Axillary Lymphatic, Open Approach, Diagnostic (ICD-10-PCS; principal; 2023-11-24 13:15)
PROC: 0HBU0ZZ Excision of Left Breast, Open Approach (ICD-10-PCS; principal; 2023-11-24 13:15)
DX: C50.412 Malignant neoplasm of upper-outer quadrant of left female breast (principal); C77.3 Secondary and unspecified malignant neoplasm of axilla and upper limb lymph nodes; Z17.0 Estrogen receptor positive status [ER+]; I10 Essential (primary) hypertension; E78.5 Hyperlipidemia, unspecified; I48.91 Unspecified atrial fibrillation; Z79.01 Long term (current) use of anticoagulants; I25.10 Atherosclerotic heart disease of native coronary artery without angina pectoris; J44.9 Chronic obstructive pulmonary disease, unspecified; Z87.891 Personal history of nicotine dependence; G47.33 Obstructive sleep apnea (adult) (pediatric); M79.7 Fibromyalgia; E66.01 Morbid (severe) obesity due to excess calories; Z68.44 Body mass index [BMI] 60.0-69.9, adult; Z79.899 Other long term (current) drug therapy; K21.9 Gastro-esophageal reflux disease without esophagitis
CPT/HCPCS: 38792; 76098; 82947; 88307; 88342; A9270; A9520; J0690; J1170; J2704; J3010; J7120; Q9968

== ENCOUNTER 2023-12-10 10:34 | Day surgery (SDC) | payer OTHER ==
[~2023-12-10] VITALS: Ht 167.6 cm; Wt 169.3 kg
[2023-12-10] VITALS (13 sets, daily range): BP systolic 131–185; BP diastolic 69–148
[~2023-12-10 10:34] MED LIST changes: +CALCIUM 1,0001 EAC1 PO; +CeFAZolin Sodium 3,000 MG in NS 100 ML IV SCH; +Lactated Ringer's 1,000 ML IV SCH; +TURMERIC-GINGE1 EACH PO; +WIXELA 500-501 EAC1 INH
--- NOTE | 2023-12-10 12:00 | NUR ---
Ambulatory in Day SurgeryPre-Op teaching done. Pt verbalizes understanding. History, Chart, Medications and Allergies reviewed before start of procedure.Patient States Post-Procedure ride home has been arranged. Patient confirms NPO status and agrees with scheduled surgery.
[2023-12-10] MEDS ORDERED: Lidocaine HCl 1% 30 ML SDV ONE (12:14)
[2023-12-10] MEDS ORDERED: Bupivacaine 0.5% HCl 5 MG/ML 30MLVIAL ONE (12:14)
[2023-12-10] MEDS ORDERED: Midazolam HCl 1MG / ML 2ML Vial ONE (12:28)
[2023-12-10] MEDS ORDERED: FentaNYL Citrate 50 MCG/ML 2 ML Injection ONE (12:29)
[2023-12-10] MEDS ORDERED: Midazolam HCl 1MG / ML 2ML Vial IV ONE (12:30)
[2023-12-10] MEDS ORDERED: propofoL 40 ML IV ONE (12:30)
[2023-12-10] MEDS ORDERED: Lidocaine HCl 2% 20 ML MDV ONE (12:32)
[2023-12-10] MEDS ORDERED: Dexamethasone Sod Phos 10 MG/ML 1ML VIAL ONE (13:06)
[2023-12-10] MEDS ORDERED: Ondansetron HCl 2 MG / ML 2ML Vial ONE (13:06)
[2023-12-10] MEDS ORDERED: FentaNYL Citrate 50 MCG/ML 2 ML Injection IV PRN ×2 (13:20)
[2023-12-10] MEDS ORDERED: HYDROmorphone HCl/Pf 1MG SYR IV PRN ×2 (13:20→13:25)
[2023-12-10] MEDS ORDERED: Ondansetron HCl 2 MG / ML 2ML Vial IV PRN (13:25)
[2023-12-10] MEDS ORDERED: HYDROmorphone HCl/Pf 1MG SYR ONE (13:59)
[2023-12-10] MEDS ORDERED: Ketorolac Tromethamine 30mg Vial ONE (14:34)
[2023-12-10] MEDS ORDERED: Ketorolac Tromethamine 15mg Vial IV ONE (14:35)
[2023-12-10] MEDS ORDERED: OxyCODONE 5 mg/Acetamin 325 mg TABLET PO PRN (14:55)
--- NOTE | 2023-12-10 16:16 | NUR ---
Patient up to Ambulate independently. Gait steady. Discharge instructions reviewed with patient. Patient verbalizes understanding. Copy given to patient to take home. Dressing to procedure site clean, dry, intact with no visible drainage, swelling, erythema or bruising noted. Patient States Post-Procedure ride home has been arranged. Discharged via wheelchair to private car for ride home. PT GIVEN APPLE JUICE AND SNACK TO GO NEDICAL RIDE CALLED AND IN ROUTE TOPICK UP PT, PT AT BEDSIDE ASSITING PT
== END 2023-12-10 23:14 | disposition home or self-care (01) ==
LOC: ORD 10:34 → ORSCMMR 10:34 → ORD 13:00
PROVIDERS: Surgery
PROC: 0HBU0ZZ Excision of Left Breast, Open Approach (ICD-10-PCS; principal; 2023-12-10 12:00)
DX: C50.412 Malignant neoplasm of upper-outer quadrant of left female breast (principal); Z17.0 Estrogen receptor positive status [ER+]; I10 Essential (primary) hypertension; E78.5 Hyperlipidemia, unspecified; G47.33 Obstructive sleep apnea (adult) (pediatric); I48.0 Paroxysmal atrial fibrillation; J45.909 Unspecified asthma, uncomplicated; J44.9 Chronic obstructive pulmonary disease, unspecified; M79.7 Fibromyalgia; K21.9 Gastro-esophageal reflux disease without esophagitis; I25.10 Atherosclerotic heart disease of native coronary artery without angina pectoris; E66.9 Obesity, unspecified; Z68.44 Body mass index [BMI] 60.0-69.9, adult; Z79.01 Long term (current) use of anticoagulants; Z79.899 Other long term (current) drug therapy; Z87.891 Personal history of nicotine dependence
CPT/HCPCS: 88307; A9270; J0690; J1100; J1170; J1885; J2250; J2405; J2704; J3010; J7120

== ENCOUNTER → 2024-02-23 | Outpatient (CLI) | payer OTHER ==
[~2024-02-23] MED LIST changes: -CeFAZolin Sodium 3,000 MG in NS 100 ML IV SCH; -Lactated Ringer's 1,000 ML IV SCH; +OXYC5 PO
== END ==
LOC: LAB 15:33 → LAB SHORT 15:33
DX: C50.412 Malignant neoplasm of upper-outer quadrant of left female breast (principal); Z17.0 Estrogen receptor positive status [ER+]; N64.89 Other specified disorders of breast
CPT/HCPCS: 87070; 87075; 87205